=== PATIENT | male | born 1985 | race Caucasian/White ===

== ENCOUNTER 2017-10-21 13:37 | Emergency (ER) | payer BC ==
[2017-10-21] MEDS: LIDOCAINE 1% (MDV) 10 ML INJ INFIL (14:09)
[2017-10-21] MEDS: DIPHTH/TET/ACEL PERTUSS (ADULT) 0.5 ML VIAL IM* (14:11)
== END 2017-10-21 15:10 | disposition home or self-care (01) ==
LOC: FTE 13:37
DX: S61.217A Laceration without foreign body of left little finger without damage to nail, initial encounter (principal); W26.8XXA Contact with other sharp object(s), not elsewhere classified, initial encounter; Y92.9 Unspecified place or not applicable
CPT/HCPCS: 12001; 73130-LT; 90471; 90715; 99283-25